=== PATIENT | female | born 1945 | race Caucasian/White ===

== ENCOUNTER 2017-08-07 09:26 | Day surgery (SDC) | payer OTHER ==
[~2017-08-07] VITALS: Ht 157.5 cm; Wt 76.6 kg
[~2017-08-07 09:26] MED LIST: ADVIL200 MG PO; C 500 MG TIMED500 MG PO; CALAN SR,COVER240 MG PO; CLONAZEPAM0.5 MG PO; GABAPENTIN100 MG PO; GABAPENTIN600 MG PO; LIDOCAINE700 MG TD; MOUTH SORE15 ML MM; OMEPRAZOLE40 M1 PO; PERCOCET 5/31 TABLET PO; PROTONIX40 MG PO; SERTRALINE HCL100 MG PO; ULTRACET1 TABLET PO; ULTRAM50 MG PO; VERAPAMIL HCL180 MG PO; VITAMIN D31000 UNIT PO; VITAMIN D400 UNIT PO
[2017-08-10] MEDS ORDERED: BUPROPION HCL150 M2 PO (11:25)
== END 2017-08-07 11:13 | disposition home or self-care (01) ==
LOC: PAIN 09:26 → SDC 10:15 → PAIN 10:15
DX: M47.26 Other spondylosis with radiculopathy, lumbar region (principal); M54.5 Low back pain; G89.29 Other chronic pain; M51.16 Intervertebral disc disorders with radiculopathy, lumbar region; M43.16 Spondylolisthesis, lumbar region; I10 Essential (primary) hypertension; K21.9 Gastro-esophageal reflux disease without esophagitis; Z88.2 Allergy status to sulfonamides; Z79.891 Long term (current) use of opiate analgesic
CPT/HCPCS: 93005; J1030; J2250; J3010; S0020

== ENCOUNTER 2017-08-14 09:31 | Day surgery (SDC) | payer OTHER ==
[~2017-08-14] VITALS: Ht 157.5 cm; Wt 75.3 kg
[~2017-08-14 09:31] MED LIST changes: +BUPROPION HCL150 M2 PO
== END 2017-08-14 11:10 | disposition home or self-care (01) ==
LOC: PAIN 09:31
DX: M47.816 Spondylosis without myelopathy or radiculopathy, lumbar region (principal); M51.36 Other intervertebral disc degeneration, lumbar region; M43.10 Spondylolisthesis, site unspecified; G89.29 Other chronic pain; I10 Essential (primary) hypertension; E78.5 Hyperlipidemia, unspecified; E66.9 Obesity, unspecified; Z68.30 Body mass index [BMI] 30.0-30.9, adult; Z88.2 Allergy status to sulfonamides; Z88.5 Allergy status to narcotic agent; Z91.041 Radiographic dye allergy status; Z91.040 Latex allergy status
CPT/HCPCS: J1030; J3010; S0020

== ENCOUNTER 2017-09-18 08:18 | Day surgery (SDC) | payer OTHER ==
[~2017-09-18] VITALS: Ht 157.5 cm; Wt 76.6 kg
[~2017-09-18 08:18] MED LIST changes: +ZOLOFT100 MG PO
== END 2017-09-18 10:40 | disposition home or self-care (01) ==
LOC: PAIN 08:18 → SDC 09:00 → PAIN 10:40
DX: M47.816 Spondylosis without myelopathy or radiculopathy, lumbar region (principal); M51.36 Other intervertebral disc degeneration, lumbar region; G89.29 Other chronic pain; M54.16 Radiculopathy, lumbar region; F41.8 Other specified anxiety disorders; E78.5 Hyperlipidemia, unspecified; I10 Essential (primary) hypertension; K21.9 Gastro-esophageal reflux disease without esophagitis; E66.9 Obesity, unspecified; Z68.30 Body mass index [BMI] 30.0-30.9, adult; N28.9 Disorder of kidney and ureter, unspecified; Z88.2 Allergy status to sulfonamides; Z88.5 Allergy status to narcotic agent; Z88.8 Allergy status to other drugs, medicaments and biological substances; Z91.040 Latex allergy status; Z91.041 Radiographic dye allergy status
CPT/HCPCS: J1030; J2250; S0020

== ENCOUNTER 2017-09-25 08:16 | Day surgery (SDC) | payer OTHER ==
[~2017-09-25] VITALS: Ht 157.5 cm; Wt 76.2 kg
== END 2017-09-25 10:05 | disposition home or self-care (01) ==
LOC: PAIN 08:16 → SDC 09:00 → PAIN 10:05
DX: M47.816 Spondylosis without myelopathy or radiculopathy, lumbar region (principal); M51.36 Other intervertebral disc degeneration, lumbar region; M54.41 Lumbago with sciatica, right side; M25.561 Pain in right knee; M43.10 Spondylolisthesis, site unspecified; D41.8 Neoplasm of uncertain behavior of other specified urinary organs; I10 Essential (primary) hypertension; K21.9 Gastro-esophageal reflux disease without esophagitis; N28.9 Disorder of kidney and ureter, unspecified; E66.9 Obesity, unspecified; Z68.30 Body mass index [BMI] 30.0-30.9, adult; Z90.49 Acquired absence of other specified parts of digestive tract; Z87.19 Personal history of other diseases of the digestive system
CPT/HCPCS: J1030; J2250; S0020